=== PATIENT | female | born 1980 | race Caucasian/White ===

== ENCOUNTER 2020-08-05 20:58 | Emergency (ER) | payer MEDICAID, SELFPAY ==
[2020-08-05 21:04] VITALS: BP 115/80; PULSE 92; RESP 16; TEMP 36.5; O2SAT 100; BMI 21.3
--- NOTE | 2020-08-05 21:17 | XRR_ITS ---
PROCEDURE INFORMATION: Exam: XR Chest, 1 View Exam date and time: 08/05/2020 9:18 PM Age: 40 years old Clinical indication: Cough; Additional info: Cough fever TECHNIQUE: Imaging protocol: XR of the chest Views: 1 view. COMPARISON: No relevant prior studies available. FINDINGS: Lungs: No consolidative pulmonary infiltrates are noted. Pleural space: No pleural effusion. No pneumothorax. Heart/Mediastinum: No cardiomegaly. Bones/joints: Unremarkable. XR/XR chest 1V portable [id number] IMPRESSION: No acute cardiopulmonary disease demonstrated.
[2020-08-05 21:20] VITALS: BP 125/84; PULSE 84; RESP 18; O2SAT 97
--- NOTE | 2020-08-05 21:23 | USR_ITS ---
PROCEDURE INFORMATION: Exam: US Duplex Left Lower Extremity Arteries Or Arterial Bypass Grafts Exam date and time: 08/05/2020 9:44 PM Age: 40 years old Clinical indication: Pain; Leg, lower; Prior surgery; Surgery date: <1 month; Surgery type: PT had punch bx of wound on lateral left lower leg; Patient HX: The wounds are chronic over a 2 year period. PT is not dm or smoker; Additional info: Chronic wound ulcer TECHNIQUE: Imaging protocol: Left Real-time duplex scan of the arteries or arterial bypass grafts of the left lower extremity with 2-D pacheco scale, color Doppler flow and spectral waveform analysis. Images documented and saved. COMPARISON: No relevant prior studies available. FINDINGS: Left common femoral artery: No occlusion or significant stenosis. Normal waveform. Left superficial femoral artery: No occlusion or significant stenosis. Normal waveform. Left popliteal artery: No occlusion or significant stenosis. Normal waveform. Left calf/foot arteries: No occlusion or significant stenosis in the visualized arteries. Normal waveforms. Dorsalis pedis artery is patent. US/CV arterial duplex [facility] [id number] IMPRESSION: No significant stenosis demonstrated in the left lower extremity.
--- NOTE | 2020-08-05 21:23 | USR_ITS ---
PROCEDURE INFORMATION: Exam: US Duplex Left Lower Extremity Veins, Limited Exam date and time: 08/05/2020 9:44 PM Age: 40 years old Clinical indication: Pain; Leg, lower; Left; Prior surgery; Surgery date: <1 month; Surgery type: Bx of largest draining wound lt lower lateral leg; Patient HX: Appears to be chronic problem but PT has become ill. ; Additional info: Chronic wound ulcer TECHNIQUE: Imaging protocol: Real-time Duplex ultrasound of the Left Lower Extremity with 2-D pacheco scale, color Doppler flow and spectral waveform analysis with image documentation. Limited exam focused on the left lower extremity veins. COMPARISON: No relevant prior studies available. FINDINGS: Left deep veins: Unremarkable. The common femoral, femoral, proximal profunda femoral and popliteal veins are patent without thrombus. Normal Doppler waveforms. Normal compressibility and/or augmentation response. Left superficial veins: Unremarkable. Saphenofemoral junction is patent without thrombus. Soft tissues: Unremarkable. US/[place] [id number] IMPRESSION: No evidence of deep vein thrombosis, left lower extremity.
--- NOTE | 2020-08-05 21:25 | W.ED.GENADLT ---
HPI - General Adult General: Chief complaint: General Medical Stated complaint: fever/muscle aches Time Seen by Provider: 08/05/20 21:16 Source: patient Mode of arrival: ambulatory Limitations: no limitations History of Present Illness: HPI narrative: Patient comes in with multiple wounds to her extremities and torso. The wounds are multiple stages from healed to ulceration. Patient reports that they are itchy at times. Patient reports that this has been going on for about 18 months. Patient has been seen at [place] and has been diagnosed with a possible immune disorder. Patient states that her mother has lupus. Patient has been on antibiotics at times for infected wounds. Patient reports some swelling to the lower extremities. Patient appears well. Patient appears in no acute distress. Patient has a significant wound to the left lower extremity on the lateral side. Review of Systems General: Reports: 10 or more systems reviewed and unremarkable except in HPI and below Skin/Breast: Reports: changing lesions and non-healing lesions PFS ED PFSH: Medical History (Updated 08/06/20 @ 02:25 by MEAGAN Torrez) Hepatitis C Patient denies medical problems Denies history of: hypertension, seizures, DVT/PE, Diabetes, heart, lung, liver, kidney, thyroid problems. Surgical History (Updated 10/27/19 @ 09:50 by Jessica Bagley RN) H/O arthroscopic knee surgery Right in 2006, left 2007--meniscal tears and cartilage shaving History of tubal ligation (~02/12/17) Performed by Dr. Osuna at [facility], [place], [place] Family History (Updated 10/27/19 @ 09:52 by Jessica Bagley RN) Unknown Diabetes Patient denies medical problems Denies family history of: Heart disease, stroke, hypercholesterolemia, thyroid problems, ovarian cancer, uterine, cancer, colon cancer. Father Hypertension Grandmother Breast cancer paternal Social History (Updated 10/27/19 @ 09:53 by Jessica Bagley RN) Smoking and tobacco status: current every day smoker cigarettes Packs smoked per day: 0.5 Alcohol intake: never Desire information about substance/drug rehabilitation?: No (Reports History of marijuana use) Physical Exam Const: COMMON NORMALS: no acute distress and patient oriented x3 GENERAL APPEARANCE: cooperative HENMT: COMMON NORMALS: normocephalic and Normal external nose present HEAD & SCALP: normal to inspection and normocephalic NOSE: Normal external nose present MOUTH: Normal oral and palatal mucosa present THROAT: posterior oropharynx normal Eye: GENERAL EYE: appearance normal, both eyes and all related structures Neck/C-Spine: COMMON NORMALS: full ROM Chest: COMMONS NORMALS: normal inspection of the chest Resp: COMMON NORMALS: normal respiratory effort EFFORT & INSPECTION: Yes able to speak in complete sentences Cardio: COMMON NORMALS: regular rate and regular rhythm RATE: regular rate RHYTHM: regular rhythm GI: COMMON NORMALS: non-tender : COMMON NORMALS: Yes no CVA tenderness BLADDER/KIDNEY EXAM: Yes no CVA tenderness Back/Pelvis: COMMON NORMALS: no CVA tenderness and thoracic and lumbar spine normal to inspection Extremity: COMMON NORMALS: normal to inspection Neuro: COMMON NORMALS: patient oriented x3 and moves all extremities Psych: COMMON NORMALS: mental status grossly normal and cooperative Skin: NARRATIVE SKIN EXAM: Multiple chronic wound ulcers of different stages from healed to ulcerations. 1 to the left lower extremity has significant amount of redness surrounding it. Patient appears well otherwise. Course ED course: 2244, reviewed elevated liver enzymes with Dr. Craig he recommended go ahead the adding ultrasound of the gallbladder, acetaminophen level, and hCG for further evaluation. Patient does continue to have her gallbladder in place, and does report occasional abdominal pain. 2320, no DVT, good arterial blood flow to extremity, gallbladder mild thickened, and enlarged liver and mass near pancreas maybe enlarge lymph node. Will CT for further evaluation of pancreas mass to rule out tumor or other pathology. Vital Signs: Vital signs: Vital Signs Temperature 97.7 F 08/05/20 21:04 Pulse Rate 88 08/06/20 02:00 Respiratory Rate 16 08/06/20 02:00 Blood Pressure 131/89 08/06/20 02:00 Pulse Oximetry 99 08/06/20 02:00 MDM - General Adult MDM Narrative: Medical decision making narrative: Patient comes in today for complaints of wounds to the left lower leg that were inflamed and ulcerated. Exam notes some cellulitis with chronic ulcer to the left lower extremity. Pulses were intact. Differential diagnosis includes but not limited to peripheral vascular disease, cellulitis, chronic leg wound. CBC was unremarkable. CMP noted elevated liver enzymes and bilirubin. Urinalysis noted large amount of white blood cells, bilirubin, and positive amphetamine use. Due to the abnormal liver enzymes we did an ultrasound of the gallbladder which showed some gallbladder wall thickening which led us to add a CT of the abdomen and pelvis which confirmed the wall thickening and a enlarged liver but otherwise no signs of common bile duct or infection. Laboratory for EtOH and acetaminophen levels were negative. Hepatitis panel noted positive A and C hepatitis. Recommended patient follow-up with Dr. Estrella for further evaluation of positive hepatitis panel. Also recommended wound care management for chronic leg wounds. Patient was treated with Levaquin for infection. Patient reported understanding of care plan and need for further follow-up. Lab Data: Labs: Lab Results 08/05/20 08/05/20 08/05/20 Range/Units 00:02 21:35 21:35 WBC 6.0 (4.0-10.0) 10^3/ uL RBC 4.44 (4.1-5.3) 10^6/u L Hgb 14.2 (11.5-15.3) g/dL Hct 42.5 (37.0-47.0) % MCV 95.7 (81-99) fL MCH 32.0 (28.0-34.0) pg MCHC 33.4 (30.0-36.0) g/dL RDW 13.4 (12.1-15.1) % Plt Count 232 (130-400) 10^3/c mm MPV 11.1 H (7.4-10.4) fL Neut % (Auto) 51.7 % Lymph % (Auto) 36.3 % [place] % (Auto) 9.8 % Eos % (Auto) 0.7 % Baso % (Auto) 0.7 % Neut # (Auto) 3.13 (1.8-7.7) 10^3/u L Lymph # (Auto) 2.2 (0.8-4.8) 10^3/u L [place] # (Auto) 0.6 (0.2-0.9) 10^3/u L Eos # (Auto) 0.0 (0.0-0.8) 10^3/u L Baso # (Auto) 0.0 (0.0-0.1) 10^3/u L Nucleated RBC % (a uto) 0 % Nucleated RBCs # 0.0 /100WBC PT (12.1-14.9) SECO NDS INR (0.8-1.2) APTT (23.9-36.7) SECO NDS Sodium 134 L (136-145) mmol/L Potassium 4.0 (3.5-5.1) mmol/L Chloride 101 (98-107) mmol/L Carbon Dioxide 25 (22-29) mmol/L Anion Gap 12.0 (5-19) BUN 6 (6-20) mg/dL Creatinine 0.5 (0.5-0.9) mg/dL GFR Calculation 135.3 H (90-130) mL/min Glucose 115 (65-115) mg/dL Calculated Osmolal ity 277 L (285-295) mOsm/k g Lactic Acid (0.5-2.2) mmol/L Calcium 8.5 (8.5-10.5) mg/dL Total Bilirubin 5.7 H (0.15-1.2) mg/dL AST 954 H (0-32) U/L ALT 920 H (0-33) U/L Alkaline Phosphata se 253 H (35-105) IU/L C-Reactive Protein 6.3 H (0.0-4.9) mg/L Total Protein 7.8 (6.6-8.7) g/dL Albumin 3.3 L (3.5-5.2) g/dL Globulin 4.5 (1.3-4.6) g/dL Lipase (13-60) U/L HCG, Qual (Negative) Urine Color (Yellow) Urine Appearance (CLEAR) Urine pH (5-7) Ur Specific Gravit y (1.005-1.030) Urine Protein (Negative) Urine Glucose (UA) (Normal) Urine Ketones (Negative) Urine Blood (Negative) Urine Nitrate (Negative) Urine Bilirubin (Negative) Urine Urobilinogen (Negative) mg/dL Ur Leukocyte Taty ase (Negative) Urine RBC (0-2) /hpf Urine WBC (0-5) /hpf Ur Squamous Epith Cells (0-5) /hpf Amorphous Sediment /hpf Urine Bacteria (NONE) /hpf Urine Opiates Scre en (Negative) ng/mL Acetaminophen (10-30) ug/mL Ur Barbiturates Sc reen (Negative) ng/mL Ur Phencyclidine S crn (Negative) ng/mL Ur Amphetamines Sc reen (Negative) ng/mL U Benzodiazepines Scrn (Negative) ng/mL Urine Cocaine Scre en (Negative) ng/mL U Marijuana (THC) Screen (Negative) ng/mL Ethyl Alcohol (0-10) mg/dL Hepatitis A IgM Ab Reactive H (Nonreactive) Hep Bs Antigen Non-reactive (Nonreactive) Hep B Core IgM Ab Non-reactive (Nonreactive) Hepatitis C Antibo dy Reactive H (Nonreactive) 08/05/20 08/05/20 08/05/20 Range/Units 21:35 21:35 21:35 WBC (4.0-10.0) 10^3/ uL RBC (4.1-5.3) 10^6/u L Hgb (11.5-15.3) g/dL Hct (37.0-47.0) % MCV (81-99) fL MCH (28.0-34.0) pg MCHC (30.0-36.0) g/dL RDW (12.1-15.1) % Plt Count (130-400) 10^3/c mm MPV (7.4-10.4) fL Neut % (Auto) % Lymph % (Auto) % [place] % (Auto) % Eos % (Auto) % Baso % (Auto) % Neut # (Auto) (1.8-7.7) 10^3/u L Lymph # (Auto) (0.8-4.8) 10^3/u L [place] # (Auto) (0.2-0.9) 10^3/u L Eos # (Auto) (0.0-0.8) 10^3/u L Baso # (Auto) (0.0-0.1) 10^3/u L Nucleated RBC % (a uto) % Nucleated RBCs # /100WBC PT (12.1-14.9) SECO NDS INR (0.8-1.2) APTT (23.9-36.7) SECO NDS Sodium (136-145) mmol/L Potassium (3.5-5.1) mmol/L Chloride (98-107) mmol/L Carbon Dioxide (22-29) mmol/L Anion Gap (5-19) BUN (6-20) mg/dL Creatinine (0.5-0.9) mg/dL GFR Calculation (90-130) mL/min Glucose (65-115) mg/dL Calculated Osmolal ity (285-295) mOsm/k g Lactic Acid 1.1 (0.5-2.2) mmol/L Calcium (8.5-10.5) mg/dL Total Bilirubin (0.15-1.2) mg/dL AST (0-32) U/L ALT (0-33) U/L Alkaline Phosphata se (35-105) IU/L C-Reactive Protein (0.0-4.9) mg/L Total Protein (6.6-8.7) g/dL Albumin (3.5-5.2) g/dL Globulin (1.3-4.6) g/dL Lipase (13-60) U/L HCG, Qual Negative (Negative) Urine Color (Yellow) Urine Appearance (CLEAR) Urine pH (5-7) Ur Specific Gravit y (1.005-1.030) Urine Protein (Negative) Urine Glucose (UA) (Normal) Urine Ketones (Negative) Urine Blood (Negative) Urine Nitrate (Negative) Urine Bilirubin (Negative) Urine Urobilinogen (Negative) mg/dL Ur Leukocyte Taty ase (Negative) Urine RBC (0-2) /hpf Urine WBC (0-5) /hpf Ur Squamous Epith Cells (0-5) /hpf Amorphous Sediment /hpf Urine Bacteria (NONE) /hpf Urine Opiates Scre en (Negative) ng/mL Acetaminophen < 5.0 L (10-30) ug/mL Ur Barbiturates Sc reen (Negative) ng/mL Ur Phencyclidine S crn (Negative) ng/mL Ur Amphetamines Sc reen (Negative) ng/mL U Benzodiazepines Scrn (Negative) ng/mL Urine Cocaine Scre en (Negative) ng/mL U Marijuana (THC) Screen (Negative) ng/mL Ethyl Alcohol < 10 (0-10) mg/dL Hepatitis A IgM Ab (Nonreactive) Hep Bs Antigen (Nonreactive) Hep B Core IgM Ab (Nonreactive) Hepatitis C Antibo dy (Nonreactive) 08/05/20 08/05/20 08/05/20 Range/Units 21:35 21:35 23:30 WBC (4.0-10.0) 10^3/ uL RBC (4.1-5.3) 10^6/u L Hgb (11.5-15.3) g/dL Hct (37.0-47.0) % MCV (81-99) fL MCH (28.0-34.0) pg MCHC (30.0-36.0) g/dL RDW (12.1-15.1) % Plt Count (130-400) 10^3/c mm MPV (7.4-10.4) fL Neut % (Auto) % Lymph % (Auto) % [place] % (Auto) % Eos % (Auto) % Baso % (Auto) % Neut # (Auto) (1.8-7.7) 10^3/u L Lymph # (Auto) (0.8-4.8) 10^3/u L [place] # (Auto) (0.2-0.9) 10^3/u L Eos # (Auto) (0.0-0.8) 10^3/u L Baso # (Auto) (0.0-0.1) 10^3/u L Nucleated RBC % (a uto) % Nucleated RBCs # /100WBC PT 12.90 (12.1-14.9) SECO NDS INR 0.94 (0.8-1.2) APTT 33.3 (23.9-36.7) SECO NDS Sodium (136-145) mmol/L Potassium (3.5-5.1) mmol/L Chloride (98-107) mmol/L Carbon Dioxide (22-29) mmol/L Anion Gap (5-19) BUN (6-20) mg/dL Creatinine (0.5-0.9) mg/dL GFR Calculation (90-130) mL/min Glucose (65-115) mg/dL Calculated Osmolal ity (285-295) mOsm/k g Lactic Acid (0.5-2.2) mmol/L Calcium (8.5-10.5) mg/dL Total Bilirubin (0.15-1.2) mg/dL AST (0-32) U/L ALT (0-33) U/L Alkaline Phosphata se (35-105) IU/L C-Reactive Protein (0.0-4.9) mg/L Total Protein (6.6-8.7) g/dL Albumin (3.5-5.2) g/dL Globulin (1.3-4.6) g/dL Lipase 49 (13-60) U/L HCG, Qual (Negative) Urine Color Sara (Yellow) Urine Appearance Sl cloudy A (CLEAR) Urine pH 5 (5-7) Ur Specific Gravit y 1.020 (1.005-1.030) Urine Protein Neg (Negative) Urine Glucose (UA) Norm (Normal) Urine Ketones 1+ H (Negative) Urine Blood 2+ H (Negative) Urine Nitrate Negative (Negative) Urine Bilirubin 3+ H (Negative) Urine Urobilinogen 4 H (Negative) mg/dL Ur Leukocyte Taty ase 2+ H (Negative) Urine RBC 0-4 H (0-2) /hpf Urine WBC Too numerous to c nt H (0-5) /hpf Ur Squamous Epith Cells 15-25 H (0-5) /hpf Amorphous Sediment 2+ /hpf Urine Bacteria Trace (NONE) /hpf Urine Opiates Scre en (Negative) ng/mL Acetaminophen (10-30) ug/mL Ur Barbiturates Sc reen (Negative) ng/mL Ur Phencyclidine S crn (Negative) ng/mL Ur Amphetamines Sc reen (Negative) ng/mL U Benzodiazepines Scrn (Negative) ng/mL Urine Cocaine Scre en (Negative) ng/mL U Marijuana (THC) Screen (Negative) ng/mL Ethyl Alcohol (0-10) mg/dL Hepatitis A IgM Ab (Nonreactive) Hep Bs Antigen (Nonreactive) Hep B Core IgM Ab (Nonreactive) Hepatitis C Antibo dy (Nonreactive) 08/05/20 Range/Units 23:30 WBC (4.0-10.0) 10^3/ uL RBC (4.1-5.3) 10^6/u L Hgb (11.5-15.3) g/dL Hct (37.0-47.0) % MCV (81-99) fL MCH (28.0-34.0) pg MCHC (30.0-36.0) g/dL RDW (12.1-15.1) % Plt Count (130-400) 10^3/c mm MPV (7.4-10.4) fL Neut % (Auto) % Lymph % (Auto) % [place] % (Auto) % Eos % (Auto) % Baso % (Auto) % Neut # (Auto) (1.8-7.7) 10^3/u L Lymph # (Auto) (0.8-4.8) 10^3/u L [place] # (Auto) (0.2-0.9) 10^3/u L Eos # (Auto) (0.0-0.8) 10^3/u L Baso # (Auto) (0.0-0.1) 10^3/u L Nucleated RBC % (a uto) % Nucleated RBCs # /100WBC PT (12.1-14.9) SECO NDS INR (0.8-1.2) APTT (23.9-36.7) SECO NDS Sodium (136-145) mmol/L Potassium (3.5-5.1) mmol/L Chloride (98-107) mmol/L Carbon Dioxide (22-29) mmol/L Anion Gap (5-19) BUN (6-20) mg/dL Creatinine (0.5-0.9) mg/dL GFR Calculation (90-130) mL/min Glucose (65-115) mg/dL Calculated Osmolal ity (285-295) mOsm/k g Lactic Acid (0.5-2.2) mmol/L Calcium (8.5-10.5) mg/dL Total Bilirubin (0.15-1.2) mg/dL AST (0-32) U/L ALT (0-33) U/L Alkaline Phosphata se (35-105) IU/L C-Reactive Protein (0.0-4.9) mg/L Total Protein (6.6-8.7) g/dL Albumin (3.5-5.2) g/dL Globulin (1.3-4.6) g/dL Lipase (13-60) U/L HCG, Qual (Negative) Urine Color (Yellow) Urine Appearance (CLEAR) Urine pH (5-7) Ur Specific Gravit y (1.005-1.030) Urine Protein (Negative) Urine Glucose (UA) (Normal) Urine Ketones (Negative) Urine Blood (Negative) Urine Nitrate (Negative) Urine Bilirubin (Negative) Urine Urobilinogen (Negative) mg/dL Ur Leukocyte Taty ase (Negative) Urine RBC (0-2) /hpf Urine WBC (0-5) /hpf Ur Squamous Epith Cells (0-5) /hpf Amorphous Sediment /hpf Urine Bacteria (NONE) /hpf Urine Opiates Scre en Negative (Negative) ng/mL Acetaminophen (10-30) ug/mL Ur Barbiturates Sc reen Negative (Negative) ng/mL Ur Phencyclidine S crn Negative (Negative) ng/mL Ur Amphetamines Sc reen Positive H (Negative) ng/mL U Benzodiazepines Scrn Negative (Negative) ng/mL Urine Cocaine Scre en Negative (Negative) ng/mL U Marijuana (THC) Screen Negative (Negative) ng/mL Ethyl Alcohol (0-10) mg/dL Hepatitis A IgM Ab (Nonreactive) Hep Bs Antigen (Nonreactive) Hep B Core IgM Ab (Nonreactive) Hepatitis C Antibo dy (Nonreactive) Discharge Plan Discharge Patient Disposition: Home Clinical Impression: Acute hepatitis A UTI (urinary tract infection) Qualifiers: Urinary tract infection type: acute cystitis Hematuria presence: without hematuria Qualified Code(s): N30.00 - Acute cystitis without hematuria Acute hepatitis C Qualifiers: Hepatic coma status: without hepatic coma Qualified Code(s): B17.10 - Acute hepatitis C without hepatic coma Condition: Stable Prescriptions: New levofloxacin 500 mg tablet 500 mg PO DAILY 10 Days Qty: 10 RF: 0 No Action alprazolam [Xanax] 0.5 mg tablet 0.5 mg PO BID PRNRF: 0 fluoxetine [Prozac] 40 mg capsule 40 mg PO QDAY RF: 0 Complete Multivitamin Tablet 1 tab PO QDAY RF: 0 Discharge Orders: Discharge Order (Routine); Ordered 08/06/20 Ordered By: Arsalan Vivas Discharge Diet: Usual diet Discharge Activity: Increase activity as tolerated Patient Instructions: Viral Hepatitis C (ED) Activity Restrictions/Additional Instructions: Home and rest. Drink plenty of fluids. Take antibiotics as directed. Avoid the use of alcohol. Avoid no more than 3000 mg of acetaminophen a day. Healthy diet and exercise. Follow-up with physical security specialist for wounds to the lower legs. Follow-up with investigator internal revenue Dr. Estrella regarding hepatitis. Coding Level of Care Code ED Evaluation Analyst for [facility] Fwd Exam Comprehensive
[2020-08-05 21:52] LABS: Basophils % 0.7 %; Eosinophils % 0.7 %; Hematocrit 42.5 % (37.0-47.0); Hemoglobin 14.2 g/dL (11.5-15.3); Lymphocytes # 2.2 10^3/uL (0.8-4.8); Lymphocytes % 36.3 %; Mean Corpuscular HGB Conc 33.4 g/dL (30.0-36.0); Mean Corpuscular Volume 95.7 fL (81-99); Mean Platelet Volume 11.1 fL (7.4-10.4); Monocytes # 0.6 10^3/uL (0.2-0.9); Monocytes % 9.8 %; Neutrophils # 3.13 10^3/uL (1.8-7.7); Neutrophils % 51.7 %; Nucleated Red Blood Cells % 0 %; Platelet Count 232 10^3/cmm (130-400); Red Blood Count 4.44 10^6/uL (4.1-5.3); Red Cell Distribution Width 13.4 % (12.1-15.1)
[2020-08-05 22:00] VITALS: BP 122/89; PULSE 94; RESP 18; O2SAT 94
[2020-08-05 22:11] LABS: Lactic Sepsis W/Reflex 1.1 mmol/L (0.5-2.2); Slide Review Slide Review Perform
[2020-08-05 22:12] LABS: Albumin Level 3.3 g/dL (3.5-5.2); Alkaline Phosphatase 253 IU/L (35-105); Blood Urea Nitrogen 6 mg/dL (6-20); Calcium 8.5 mg/dL (8.5-10.5); Carbon Dioxide 25 mmol/L (22-29); Chloride 101 mmol/L (98-107); Globulin 4.5 g/dL (1.3-4.6); Glomerular Filtration Rate 135.3 mL/min (90-130); Glucose 115 mg/dL (65-115); Osmolality Calculated 277 mOsm/kg (285-295); Sodium 134 mmol/L (136-145); Total Bilirubin 5.7 mg/dL (0.15-1.2); Total Protein 7.8 g/dL (6.6-8.7)
[2020-08-05 22:25] LABS: Alanine Aminotransferase 920 U/L (0-33)
[2020-08-05 22:26] LABS: C Reactive Protein 6.3 mg/L (0.0-4.9)
--- NOTE | 2020-08-05 22:28 | PC.NURSE ---
Blood cultures and wound culture to lab wound Lt lower leg
[2020-08-05 22:36] LABS: Aspartate Amino Transferase 954 U/L (0-32)
--- NOTE | 2020-08-05 22:41 | USR_ITS ---
PROCEDURE INFORMATION: Exam: US Abdomen, Limited; Right Upper Quadrant Exam date and time: 08/05/2020 11:17 PM Age: 40 years old Clinical indication: Other: Lab work out of range; Patient HX: PT came in for several non healing painful wounds lower lt leg and foot; Additional info: Elevated liver enzymes TECHNIQUE: Imaging protocol: US abdomen. Real time ultrasound with image documentation. Limited exam focused on the right upper quadrant. COMPARISON: No relevant prior studies available. FINDINGS: Liver: The liver is mildly enlarged, measuring 17 cm in length. No focal liver lesions. Gallbladder: Gallbladder is contracted in this nonfasting patient. Mural thickening of the gallbladder, which may be explained by nonfasting state, or may be a sympathetic reaction to adjacent hepatic inflammation. No gallstones are demonstrated. Common bile duct: No biliary dilatation. The common duct measures 4.8 mm in diameter. Pancreas: The pancreas is normal in appearance. Right kidney: Right kidney measures 11.0 cm in length. Normal renal echotexture. No hydronephrosis. No cyst, mass, or calculus demonstrated. Aorta: The aorta is unremarkable as demonstrated. Inferior vena cava: The intrahepatic portion of the inferior vena cava is unremarkable. US/US gall bladder [id number] IMPRESSION: 1. Mild hepatomegaly. No focal liver lesions. No intrahepatic biliary dilatation. 2. Gallbladder is contracted in this nonfasting patient. Mural thickening of the gallbladder, which may be explained by nonfasting state, or may be a sympathetic reaction to adjacent hepatic inflammation. No gallstones are demonstrated.
[2020-08-05 23:14] LABS: Acetaminophen < 5.0 ug/mL (10-30); Alcohol Level < 10 mg/dL (0-10); HCG, Serum Qual Negative (Negative)
--- NOTE | 2020-08-05 23:18 | CTR_ITS ---
PROCEDURE INFORMATION: Exam: CT Abdomen And Pelvis With Contrast Exam date and time: 08/05/2020 11:33 PM Age: 40 years old Clinical indication: Abdominal pain; Localized; Right; Patient HX: C/O R sided abd pain w elev liver enzymes; Additional info: Elevated liver enzymes, abd pain TECHNIQUE: Imaging protocol: Computed tomography of the abdomen and pelvis with intravenous contrast. Radiation optimization: All CT scans at this facility use at least one of these dose optimization techniques: automated exposure control; mA and/or kV adjustment per patient size (includes targeted exams where dose is matched to clinical indication); or iterative reconstruction. Contrast material: OMNI 300; Contrast volume: 75 ml; Contrast route: INTRAVENOUS (IV); COMPARISON: US gall bladder [id number] 08/05/2020 11:04 PM RADIATION DOSE METRICS: Total DLP (mGy-cm): 370.16 FINDINGS: Lungs: The lung bases appear unremarkable. Liver: Mild hepatomegaly. Mild periportal edema. No focal liver lesion. Gallbladder and bile ducts: Contracted gallbladder with gallbladder wall thickening. No calcified gallstones. No biliary dilatation. Pancreas: The pancreas is normal in appearance. Spleen: Unremarkable. No splenomegaly. Adrenal glands: The adrenal glands appear within normal limits. Kidneys and ureters: The kidneys are normal in morphology. No hydronephrosis. No solid mass. Stomach and bowel: No acute gastric abnormality demonstrated. The small bowel is unremarkable as demonstrated. Moderate retained stool throughout the colon. No inflammatory change of the colon. Appendix: No evidence of appendicitis. Intraperitoneal space: No pneumoperitoneum. No significant fluid collection. Vasculature: No abdominal aortic aneurysm. Lymph nodes: No pathologically enlarged lymph nodes. Urinary bladder: Unremarkable as visualized. Reproductive: Uterus and adnexa appear unremarkable. Bones/joints: No fracture or other acute osseous abnormality. Soft tissues: Unremarkable. CT/CT abdomen pelvis w con* [id number] IMPRESSION: 1. Mild hepatomegaly. Mild periportal edema. No focal liver lesion. 2. Contracted gallbladder with gallbladder wall thickening. No calcified gallstones. 3. The examination is otherwise unremarkable. Radiation Dose CTDIVOL = (mGy): DLP = 370.16 (mGy-cm)
[2020-08-05 23:25] LABS: Lipase 49 U/L (13-60)
[2020-08-05 23:30] VITALS: BP 120/84; PULSE 88; RESP 18; O2SAT 99
[2020-08-06] VITALS: BP 117/83; PULSE 82; RESP 18; O2SAT 99
[2020-08-06 00:03] LABS: Amphetamines Screen Urine Positive (Negative); Barbiturates Screen Urine Negative (Negative); Benzodiazepines Screen Urine Negative (Negative); Cocaine Screen Urine Negative (Negative); Opiate Screen Urine Negative (Negative); PCP Screen Urine Negative (Negative); THC Screen Urine Negative (Negative)
[2020-08-06] MEDS: iohexol 300 mg/mL 100 mL Btl IV (00:11)
[2020-08-06 00:32] LABS: INR 0.94 (0.8-1.2)
[2020-08-06 00:33] LABS: Partial Thromboplastin Time 33.3 SECONDS (23.9-36.7)
[2020-08-06 00:45] LABS: Add Urine Microscopic? YES; Bilirubin Urine 3+ (Negative); Blood Urine 2+ (Negative); Glucose Urine UA Norm (Normal); Ketones Urine 1+ (Negative); Leukocyte Esterase Urine 2+ (Negative); Nitrate Urine Negative (Negative); Protein Urine Neg (Negative); Urine Color Amber (Yellow); Urobilinogen Urine 4 mg/dL (Negative); pH Urine 5 (5-7)
[2020-08-06 00:48] LABS: Add Urine Culture? No; Amorphous Sediment Urine 2+ /hpf; Bacteria Urine TRACE /hpf; RBC Urine 0-4 /hpf (0-2); Squamous Epithelial Cell Urine 15-25 /hpf (0-5); WBC Urine TOO NUMEROUS TO CNT /hpf (0-5)
[2020-08-06 00:57] LABS: Hepatitis B Core IgM Non-Reactive (Nonreactive); Hepatitis B Surface Antigen Non-Reactive (Nonreactive); Hepatitis C Virus Antibody Reactive (Nonreactive)
[2020-08-06 01:00] VITALS: BP 130/70; PULSE 84; RESP 18; O2SAT 97
[2020-08-06] MEDS: levofloxacin-dextrose 5 % 500 MG/100 ML PREMIX 100 MG IV (01:46)
[2020-08-06 02:00] VITALS: BP 131/89; PULSE 88; RESP 16; O2SAT 99
[2020-08-06 02:17] LABS: Hepatitis A Antibody IgM Reactive (Nonreactive)
[2020-08-06 02:28] VITALS: BP 117/79; PULSE 88; RESP 18; TEMP 36.8; O2SAT 96
--- NOTE | 2020-08-07 15:25 | DCPLANNER ---
manager fine dining had message to schedule a follow up appointment for patient with Dr. Estrella and with Wound Care. manager fine dining called the office of Dr. Estrella, spoke with Gabby, gave clinic patients information. A follow up appointment was scheduled for Sunday, August 16, 2020 at 11:[address] Estrella. manager fine dining called Wound Care, spoke with Randi, a follow up appointment was scheduled for July at 2:[address] Robles. manager fine dining called patient and gave patient appointment information for both appointments. Patient stated that she would attend the appointments.
--- NOTE | 2020-10-04 13:20 | DCPLANNER ---
Patient had a follow up appointment scheduled for 08.10.20 with Wound Care - patient did attend appointment.
--- NOTE | 2020-10-04 13:21 | DCPLANNER ---
Patient had a follow up appointment scheduled for 08.16.[address] Estrella - patient did not attend appointment.
== END 2020-08-06 04:05 | disposition home or self-care (01) ==
PROVIDERS: Emergency Medicine; Emergency Provider Nurse Practitioner Family
DX: N30.00 Acute cystitis without hematuria (principal); B17.10 Acute hepatitis C without hepatic coma; B15.9 Hepatitis A without hepatic coma; F17.210 Nicotine dependence, cigarettes, uncomplicated
CPT/HCPCS: 12345; 36415; 71045; 74177; 76705; 80053; 80074; 80306; 80307; 81001; 81003; 83605; 83690; 84703; 85025; 85610; 85730; 86140; 87040; 87070; 87075; 87077; 87186; 87205; 93926; 93971; 96365; 99281; 99284; J1956; Q9967